=== PATIENT | male | born 1980 | race Caucasian/White ===

== ENCOUNTER 2022-08-14 20:06 | Emergency (ER) | payer MEDICAID, SELFPAY ==
[2022-08-14 20:07] VITALS: BP 136/85; PULSE 64; RESP 15; TEMP 36.2; O2SAT 95; BMI 25.7
[2022-08-14 22:22] VITALS: PULSE 69; RESP 16; O2SAT 97
--- NOTE | 2022-08-14 22:22 | EX.ED.DYSGE1 ---
HPI History of Present Illness Chief Complaint: Wound Narrative Narrative: Patient is a 41-year-old male with no significant past medical history. He reports over the past 5 days he has developed redness swelling and pain along the right cheek near the nostril. He denies any trauma or history of immunosuppression. He states that he has had this happen a few times in the past and the areas will spontaneously rupture and then improved. He states that has not occurred this time and he is afraid he may need antibiotics and with this comes in for evaluation. PFSH PFSH Home Medications cyclobenzaprine 10 mg tablet 10 mg PO TID spasm #20 tabs 04/26/17 [Rx Last Taken Unknown] naproxen 500 mg tablet 500 mg PO BID #20 tabs 04/26/17 [Rx Last Taken Unknown] clindamycin HCl 300 mg capsule 300 mg PO 4X/DAY 7 days #28 caps 08/14/22 [Rx Last Taken Unknown] hydrocodone-acetaminophen 5-325mg 5mg-325mg 1 tab PO Q6H PRN PRN Pain 3 days #12 TABLETS 08/14/22 [Rx Last Taken Unknown] Allergy/AdvReac Type Severity Reaction Status Date / Time No Known Allergies Allergy Verified 08/14/22 20:09 Social History Smoking Status: Current every day smoker tobacco type: cigarettes ROS ROS ED Constitutional Constitutional ED: Denies chills or fever(s) ENT ENT ED: Denies sore throat Cardiovascular Cardiovascular: Denies chest pain Respiratory/Chest Respiratory/Chest: Denies cough or dyspnea Gastrointestinal Gastrointestinal: Denies abdominal pain, diarrhea, nausea or vomiting Genitourinary Genitourinary ED: Denies dysuria Musculoskeletal Musculoskeletal: Denies myalgias Integumentary Reports abscess Neurologic Neurologic: Denies headache(s) Hematologic/Lymphatic Hematologic/Lymphatic: Denies easy bleeding or easy bruising EXAM Physical Exam Const Vital Signs: 08/14/22 20:07 08/14/22 22:22 Temperature 97.1 F L Temperature Source Temporal Pulse Rate 64 69 Respiratory Rate 15 16 Blood Pressure 136/85 H Blood Pressure Mean 102 Pulse Ox 95 97 Oxygen Delivery Method Room Air Positive well nourished and well developed General Appearance ED: well developed HEENT Reports moist mucous membranes HEENT Narrative: No intranasal abscess noted Eyes PERRL and EOMs intact bilaterally Neck supple Resp normal respiratory effort and clear to auscultation bilaterally Cardio regular rate and regular rhythm Extremity normal to inspection Neuro oriented x3 and CN's II-XII intact bilaterally Sensorium / Orientation: alert Psych mental status grossly normal Skin Skin Narrative: Patient has soft tissue swelling along the medial aspect/nasal aspect of the zygomatic arch there is a 1 x 1 cm of erythema with slight pustule head and a 1 x 2 cm area of induration consistent with abscess. No active drainage or lymphangitic streaking noted. No crepitance palpated. MDM MDM MDM Narrative Medical decision making narrative: Patient presented to the ER afebrile with stable vitals. His exam is consistent with early abscess. We discussed incision and drainage but patient does not that performed at this time. By exam he does not have dacryocystitis or cellulitis or gas gangrene. Therefore this time as his physical exam history indicates early abscess formation and he does not want incision and drainage and he is not immunosuppressed we will simply start him on antibiotics and recommend warm compresses to get the area draining. Patient states he is agreeable with this plan and therefore he will be prescribed clindamycin and discharged home History & Record Review Discussion w/independent historian: Patient Discharge Plan Triage Chief Complaint: Wound ED Provider: Gray Gallego Dx/Rx/DC Orders Clinical Impression: Abscess of face Instructions: ED Abscess Antibiotic Treatment Only Prescriptions: New clindamycin HCl 300 mg capsule 300 mg PO 4X/DAY 7 Days Qty: 28 0RF hydrocodone-acetaminophen 5-325 mg tablet 1 tab PO Q6H PRN PRN (Reason: Pain) 3 Days Qty: 12 0RF No Action cyclobenzaprine 10 MG tablet 10 mg PO TID Qty: 20 0RF naproxen 500 MG tablet 500 mg PO BID Qty: 20 0RF Stand Alone Forms: ED Work / School Excuse Primary Care Provider: Care Physician,No Primary Referrals: Suzan Farfan MD [Med Staff - Enrollment Counselor] - Care Physician,No Primary [Primary Care Provider] - Activity Restrictions/Additional Instructions: Take the antibiotics as directed and use warm compresses to help bring the abscess to a head and help with draining. If there is worsening of symptoms despite taking the antibiotic you may need to have the area incised and drained and therefore return to the hospital for repeat evaluation Disposition Disposition: Home, Self Care Discharge Date/Time: 08/14/22 22:36
[2022-08-14] MEDS: Clindamycin HCl 150 MG Capsule 300 MG PO (22:32)
== END 2022-08-14 22:36 | disposition home or self-care (01) ==
PROVIDERS: Emergency Provider Emergency Medicine; Visit Provider Emergency Medicine
DX: L02.01 Cutaneous abscess of face (principal); F17.210 Nicotine dependence, cigarettes, uncomplicated
CPT/HCPCS: 99283

== ENCOUNTER 2023-03-24 15:44 | Emergency (ER) | payer OTHER, SELFPAY ==
[2023-03-24 15:45] VITALS: BP 110/57; BP 139/104; PULSE 61; PULSE 64; RESP 12; RESP 19; TEMP 36; O2SAT 98; BMI 26.4
[2023-03-24] MEDS: Diphth,Pertuss(Acell),Tet Vac 0.5 ML Vial IM (16:20)
[2023-03-24] MEDS: Gelfoam 12-7 MM Sponge (1) 1 EACH TOPICAL (16:21)
--- NOTE | 2023-03-24 16:27 | EX.ED.DYSGE1 ---
HPI <ESTIVEN Covarrubias - Last Filed: 03/24/23 16:43> History of Present Illness Chief Complaint: Laceration Narrative Narrative: Patient is a 42-year-old male with no significant medical history presents to the emergency department after sustaining a laceration while at work. 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 Patient states he was unable to get the bleeding stopped, he is here for evaluation. Patient injury is a workers comp claim. Patient is unsure of his last tetanus vaccination. PFSH <ESTIVEN Covarrubias - Last Filed: 03/24/23 16:43> [facility] Medical History no medical history Home Medications cyclobenzaprine 10 mg tablet 10 mg PO TID spasm #20 tabs 04/26/17 [Rx Last Taken Unknown] naproxen 500 mg tablet 500 mg PO BID #20 tabs 04/26/17 [Rx Last Taken Unknown] clindamycin HCl 300 mg capsule 300 mg PO 4X/DAY 7 days #28 caps 08/14/22 [Rx Last Taken Unknown] hydrocodone-acetaminophen 5-325mg 5mg-325mg 1 tab PO Q6H PRN PRN Pain 3 days #12 TABLETS 08/14/22 [Rx Last Taken Unknown] Allergy/AdvReac Type Severity Reaction Status Date / Time No Known Allergies Allergy Verified 03/24/23 15:47 Social History Smoking Status: Current every day smoker tobacco type: cigarettes ROS <ESTIVEN Covarrubias - Last Filed: 03/24/23 16:43> ROS ED ROS Narrative Constitutional: Negative for fever, chills, weight loss, weakness Eyes: Negative for vision loss, vision change, double vision ENT: Negative for any sore throat, ear pain, congestion Cardiovascular: Negative for any chest pain, tightness, palpitations Respiratory: Negative for any cough, sputum production, hemoptysis, dyspnea, dyspnea on exertion, orthopnea Gastrointestinal: Negative for any abdominal pain, nausea, vomiting, diarrhea, constipation, blood in stool, blood in vomit : Negative for any urinary frequency, dysuria, retention, blood in urine Muscle skeletal: Negative for any muscle joint pain, stiffness, myalgias, arthralgias, neck pain, back pain Neurological: Negative for any headache, syncope, numbness or tingling, dizziness Skin: Negative for any rashes, lumps, itching, abrasions. Positive for left thumb laceration Psychiatric: Negative for any depression, anxiety, stress, suicidal ideation, homicidal ideation Hematologic: Negative for any easy bruising, excessive bruising, easy bleeding Allergies: Negative for any eczema, hives, rash EXAM <ESTIVEN Covarrubias - Last Filed: 03/24/23 16:43> Physical Exam Narrative Exam Narrative: Vital signs reviewed. Extremities: No peripheral edema, no signs of gross trauma or deformity. Active full range of motion of all extremities. Patient does have an avulsion light laceration of the distal tip of the left thumb. There is bleeding however there is no evidence of any deep tissue injury, there is no bone exposure, no foreign body. Patient has full range of motion. +2 radial pulse. X-ray neurological focal deficit Neuro: Cranial nerves II through XII intact, no focal neurological deficits. Skin: Clean dry and intact with no rash, purpura, petechiae, vesicles or pustules. Backs/flank: No CVA tenderness, no midline spinal tenderness, no deformity. Psych: Normal mood and affect. No SI, HI or acute psychosis. Const Vital Signs: 03/24/23 15:45 03/24/23 15:45 Temperature 96.8 F L Temperature Source Temporal Pulse Rate 61 64 Respiratory Rate 19 H 12 Blood Pressure 139/104 H 110/57 L Blood Pressure Mean 115 74 Pulse Ox 98 98 Oxygen Delivery Method Room Air Room Air Positive well nourished and well developed General Appearance ED: well developed <Dr. Willem Dietrich MD - Last Filed: 03/24/23 21:12> Physical Exam Const Vital Signs: 03/24/23 15:45 03/24/23 15:45 Temperature 96.8 F L Temperature Source Temporal Pulse Rate 61 64 Respiratory Rate 19 H 12 Blood Pressure 139/104 H 110/57 L Blood Pressure Mean 115 74 Pulse Ox 98 98 Oxygen Delivery Method Room Air Room Air MDM <ESTIVEN Covarrubias - Last Filed: 03/24/23 16:43> MDM Treatment and Re-Evaluation :: Patient appears generally well, patient appears nontoxic, vital signs are stable. Patient presents to the emergency department after a avulsion like injury to the distal tip of the left thumb. I did anesthetize the area in order to clean it more thoroughly. I was able to place Gelfoam on the area. Patient was given wound care instructions. All proper paperwork was filled out. At this time, patient will receive his Adacel vaccination today, all proper paperwork were filled out. He was given return precaution. Patient stable for discharge <Dr. Willem Dietrich MD - Last Filed: 03/24/23 21:12> [facility] Treatment and Re-Evaluation Comments:: I have personally performed a face to face assessment of the patient and have reviewed the MARCIE Note. I performed a substantive portion of the visit including all aspects of the following. 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 Exam is epidermal avulsion into the dermis with oozing, superficial relatively, with no nail or nailbed injury, no x-ray indicated given this is not near the bone. Full extension and flexion intact. Medical Decison Making supportive care as above. Other additions or changes: [None] Discharge Plan Triage Chief Complaint: Laceration ED Midlevel Provider: Patrick Bundy ED Provider: Willem Dietrich Dx/Rx/DC Orders Clinical Impression: Avulsion of skin of left thumb Instructions: ED Laceration: All Closures, ED Wound Check (No Infection) Prescriptions: No Action cyclobenzaprine 10 MG tablet 10 mg PO TID Qty: 20 0RF naproxen 500 MG tablet 500 mg PO BID Qty: 20 0RF clindamycin HCl 300 mg capsule 300 mg PO 4X/DAY 7 Days Qty: 28 0RF hydrocodone-acetaminophen 5-325 mg tablet 1 tab PO Q6H PRN PRN (Reason: Pain) 3 Days Qty: 12 0RF Primary Care Provider: Care Physician,No Primary Referrals: Care Physician,No Primary [Primary Care Provider] - [facility] [Non-Staff] - Activity Restrictions/Additional Instructions: You must keep the area clean and dry. Use the dressing material we gave you. Disposition Disposition: Home, Self Care Discharge Date/Time: 03/24/23 16:49
--- NOTE | 2023-03-24 16:47 | ED.RN ---
PT INSTRUCTED TO GO STRAIGHT TO NOW [facility]IC THEY CLOSE AT 1800. PT VOICES UNDERSTANDING.
== END 2023-03-24 16:49 | disposition home or self-care (01) ==
PROVIDERS: Emergency Provider Emergency Medicine; Visit Provider Emergency Medicine
DX: S61.012A Laceration without foreign body of left thumb without damage to nail, initial encounter (principal); F17.210 Nicotine dependence, cigarettes, uncomplicated; Z23 Encounter for immunization; W26.0XXA Contact with knife, initial encounter
CPT/HCPCS: 90471; 90715; 99282

== ENCOUNTER 2023-04-21 15:38 | Emergency (ER) | payer MEDICAID, SELFPAY ==
[2023-04-21 15:41] VITALS: BP 139/108; PULSE 122; RESP 20; TEMP 35.9; O2SAT 100; BMI 25.0
--- NOTE | 2023-04-21 15:50 | RAD_ITS ---
STUDY: X-RAY CHEST REASON FOR EXAM: Male, 42 years old. SOB TECHNIQUE: PA and lateral COMPARISON: April 26 2017 FINDINGS: The lungs are clear and expanded. There is no demonstrated pleural abnormality. Normal size heart. Normal mediastinum and hilum. Normal visualized pulmonary arteries. Normal visualized aortic arch and descending thoracic aorta. Normal visualized thoracic spine. Normal visualized ribs, clavicles, and shoulders. There is no demonstrated abnormality of the visualized soft tissue structures of the upper abdomen. RAD/Chest PA and Lateral IMPRESSION: No acute cardiopulmonary pathology Electronically Signed: Reginald Dasilva MD at 16:12 EST ,
--- NOTE | 2023-04-21 15:55 | EKG12_ITS ---
Test Reason : SOB/CP Blood Pressure : / mmHG Vent. Rate : 106 BPM Atrial Rate : 106 BPM P-R Int : 128 ms QRS Dur : 082 ms QT Int : 322 ms P-R-T Axes : 084 077 067 degrees QTc Int : 427 ms Sinus tachycardia Biatrial enlargement Abnormal ECG Confirmed by BAYRON FLOREZ, ML ([id number]), school photograph editor SHANNON WEAVER ([id number]) on 04/22/2023 10:48:22 AM Referred By: Confirmed By:ML VERMA MD
--- NOTE | 2023-04-21 16:16 | EDS_ITS ---
HPI <ESTIVEN Covarrubias - Last Filed: 04/21/23 16:20> History of Present Illness Chief Complaint: Shortness of Breath Narrative Narrative: Patient is a 42-year-old male with history of tobacco use, history of bronchitis presents to the emergency department with complaints of shortness of breath. 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 He states that he then got anxious, and is here for evaluation. [place] any cough, fever, chills, nausea or vomiting. PFSH <ESTIVEN Covarrubias - Last Filed: 04/21/23 16:20> [facility] Medical History no medical history Home Medications cyclobenzaprine 10 mg tablet 10 mg PO TID spasm #20 tabs 04/26/17 [Rx Last Taken Unknown] naproxen 500 mg tablet 500 mg PO BID #20 tabs 04/26/17 [Rx Last Taken Unknown] clindamycin HCl 300 mg capsule 300 mg PO 4X/DAY 7 days #28 caps 08/14/22 [Rx Last Taken Unknown] hydrocodone-acetaminophen 5-325mg 5mg-325mg 1 tab PO Q6H PRN PRN Pain 3 days #12 TABLETS 08/14/22 [Rx Last Taken Unknown] Allergy/AdvReac Type Severity Reaction Status Date / Time No Known Allergies Allergy Verified 04/21/23 15:40 Surgical History no surgical history Social History Smoking Status: Current every day smoker tobacco type: cigarettes ROS <ESTIVEN Covarrubias - Last Filed: 04/21/23 16:20> ROS ED ROS Narrative Constitutional: Negative for fever, chills, weight loss, weakness Eyes: Negative for vision loss, vision change, double vision ENT: Negative for any sore throat, ear pain, congestion Cardiovascular: Negative for any chest pain, tightness, palpitations Respiratory: Negative for any cough, sputum production, hemoptysis, dyspnea on exertion, orthopnea. Positive for dyspnea Gastrointestinal: Negative for any abdominal pain, nausea, vomiting, diarrhea, constipation, blood in stool, blood in vomit : Negative for any urinary frequency, dysuria, retention, blood in urine Muscle skeletal: Negative for any myalgias, arthralgias, neck pain, back pain Neurological: Negative for any headache, syncope, numbness or tingling, dizziness Skin: Negative for any rashes, lumps, itching, abrasions, lacerations Psychiatric: Negative for any depression, anxiety, stress, suicidal ideation, homicidal ideation Hematologic: Negative for any easy bruising, excessive bruising, easy bleeding Allergies: Negative for any eczema, hives, rash EXAM <ESTIVEN Covarrubias - Last Filed: 04/21/23 16:20> Physical Exam Narrative Exam Narrative: Vital signs reviewed. HEET: Head normocephalic atraumatic, TMs clear bilaterally. Posterior pharynx is clear, moist mucous membranes. Nares clear bilaterally. Neck: Supple with no lymphadenopathy or tenderness. No signs of meningismus. Cardiac: Regular rate and rhythm no murmurs gallops or rubs, equal peripheral pulses bilaterally. Respiratory: Lungs clear to auscultation bilaterally. No chest tenderness. Abdomen: Soft, nontender, nondistended. No abdominal bruit or pulsatile masses. No hepatosplenomegaly Extremities: No peripheral edema, no signs of gross trauma or deformity. Active full range of motion of all extremities. Neuro: Cranial nerves II through XII intact, no focal neurological deficits. Skin: Clean dry and intact with no rash, purpura, petechiae, vesicles or pustules. Backs/flank: No CVA tenderness, no midline spinal tenderness, no deformity. Psych: Normal mood and affect. No SI, HI or acute psychosis. Const Vital Signs: 04/21/23 15:41 Temperature 96.7 F L Temperature Source Temporal Pulse Rate 122 H Respiratory Rate 20 H Blood Pressure 139/108 H Blood Pressure Mean 118 Pulse Ox 100 Oxygen Delivery Method Room Air <Dr. Mo Gould MD - Last Filed: 04/21/23 16:26> Physical Exam Const Vital Signs: 04/21/23 15:41 Temperature 96.7 F L Temperature Source Temporal Pulse Rate 122 H Respiratory Rate 20 H Blood Pressure 139/108 H Blood Pressure Mean 118 Pulse Ox 100 Oxygen Delivery Method Room Air MDM <ESTIVEN Covarrubias - Last Filed: 04/21/23 16:20> MDM Radiography Diagnostic Testing: Clinical Impression(s) from Imaging Studies Chest X-Ray 04/21/23 15:50 IMPRESSION: No acute cardiopulmonary pathology Electronically Signed: Reginald Dasilva MD at 16:12 EST Reading Location ID and State: [facility] / [place] Tel , Service support , Treatment and Re-Evaluation :: Patient appears generally well, patient appears nontoxic, vital signs are stable. Presenting to the emergency department complaints of shortness of breath after getting out of a walkout freezer. Differential diagnosis includes pneumonia, viral-like symptoms, pulmonary embolism, pneumothorax. Patient's vital signs are stable, patient is no obvious distress. Patient has no advantageous lung sounds, no infectious-like symptoms. Patient received a two- view chest x-ray, this was interpreted by ER physician, this was negative for any acute process. Patient's EKG was unremarkable. At this time, patient struck to quit smoking, he will be discharged home, patient be diagnosed dyspnea, uncertain etiology. On reevaluation, the patient is in no obvious distress, patient is speaking complete sentences, patient was given return precautions. <Dr. Mo Gould MD - Last Filed: 04/21/23 16:26> [facility] Narrative Medical decision making narrative: I have personally performed a face to face assessment of the patient and have reviewed the MARCIE Note. I performed a substantive portion of the visit including all aspects of the following. My cannon findings include: History is 42-year-old male no significant past medical history. Patient is a smoker. States he felt fine the last few days. He felt fine this morning. He actually walked to work which takes him 20 to 30 minutes. He said he felt fine. 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 No chest pain. No fever. No cough. No leg pain or swelling. No history of DVT or PE or risk factor. No history of cardiac disease. Denies any recent URI symptoms. Exam is [well-appearing 42-year-old male. Vital signs stable. Pulse ox 100% on room air no signs hypoxia. HEENT exam normal. Neck nontender no lymphadenopathy. Lungs clear to auscultation bilaterally. No rales, rhonchi or wheezing. Equal symmetrical Heart regular rhythm rate about 105 no murmur. Chest wall nontender. Abdomen soft nontender. Normal bowel sounds. Nondistended. No peritoneal signs. Moving all 4 extremities. Nontender. No edema. No cords. Equal symmetrical radial pulses. Back exam normal. Skin no rashes. Neurologically is awake and alert with no focal motor deficits.] Medical Decision Making [42-year-old with a normal exam complaint shortness of breath with a pulse ox 100%. He had no recent illness. No reason to be anemic. His chest x-ray was unremarkable with a normal cardiac silhouette and mediastinum. Normal lung montalvo. It was 2 views interpreted by myself. EKG showed a sinus tachycardia rate of around 106 but no signs of DE, ischemia or dysrhythmia. Patient will be discharged home with outpatient follow-up.] Other additions or changes: [None] History & Record Review Discussion w/independent historian: Patient Radiography Chest X-Ray - ED: 2 View, Read by ED Physician, Read by Radiologist, Normal, Heart, Lungs, Mediastinum, Bony Structures and No Acute Disease Diagnostic Testing: Clinical Impression(s) from Imaging Studies Chest X-Ray 04/21/23 15:50 IMPRESSION: No acute cardiopulmonary pathology Electronically Signed: Reginald Dasilva MD at 16:12 EST Reading Location ID and State: [facility] / [place] Tel , Service support , Discharge Plan Triage Chief Complaint: Shortness of Breath ED Midlevel Provider: Patrick Bundy ED Provider: Mo Gould Dx/Rx/DC Orders Clinical Impression: Dyspnea Instructions: ED Dyspnea Prescriptions: No Action cyclobenzaprine 10 MG tablet 10 mg PO TID Qty: 20 0RF naproxen 500 MG tablet 500 mg PO BID Qty: 20 0RF clindamycin HCl 300 mg capsule 300 mg PO 4X/DAY 7 Days Qty: 28 0RF hydrocodone-acetaminophen 5-325 mg tablet 1 tab PO Q6H PRN PRN (Reason: Pain) 3 Days Qty: 12 0RF Primary Care Provider: Care Physician,No Primary Referrals: Care Physician,No Primary [Primary Care Provider] - Activity Restrictions/Additional Instructions: Please try to quit smoking, return for any worsening symptoms Disposition Disposition: Home, Self Care
[2023-04-21 16:32] VITALS: O2SAT 98
== END 2023-04-21 16:32 | disposition home or self-care (01) ==
LOC: ED 16:29
PROVIDERS: Emergency Provider Emergency Medicine; Visit Provider Emergency Medicine
DX: R06.00 Dyspnea, unspecified (principal); F17.210 Nicotine dependence, cigarettes, uncomplicated
CPT/HCPCS: 71046; 93005; 99282

== ENCOUNTER 2023-05-01 15:57 | Emergency (ER) | payer MEDICAID, SELFPAY ==
[2023-05-01 15:58] VITALS: BP 104/62; PULSE 59; RESP 17; TEMP 36.7; O2SAT 98; BMI 25.7
[2023-05-01 16:21] LABS: Absolute Lymphocyte Count 2.85 X10^3/uL (0.83-4.51); Absolute Neutrophil Count 6.2 X10^3/uL (2.0-7.7); Basophil# 0.08 X10^3/uL; Basophil% 0.8 % (0-1); Eosinophil# 0.08 X10^3/uL; Eosinophils% 0.8 % (0-5); Hematocrit 44.1 % (40-54); Hemoglobin 15.2 g/dL (13.0-16.5); Lymphocyte # 2.85 X10^3/ul (0.83-4.51); Lymphocyte % 28.9 % (19-41); Mean Corp Hgb Conc 34.5 g/dL (32-36); Mean Corpuscular Hgb 30.5 pg (27.0-32.0); Mean Corpuscular Volume 88.4 fL (80-94); Mean Platelet Vol. 9.6 fl (6.2-12.0); Monocyte# 0.64 X10^3/uL; Monocyte% 6.5 % (0-10); NRBC Flagged by Analyzer 0 % (0-5); Neutrophil # 6.18 X10^3/uL (2.7-7.7); Neutrophil % 62.8 % (47-70); Platelet Count 326 K/mm3 (150-450); RBC Distribution Width CV 12.2 % (11.6-14.6); RBC Distribution Width SD 39.5 fl (35.1-43.9); Red Blood Count 4.99 M/mm3 (4.6-6.2); White Blood Count 9.9 K/mm3 (4.4-11.0)
[2023-05-01 16:40] LABS: ALB/GLOB Ratio 1.1 RATIO (0.9-2.4); AST(SGOT) 17 U/L (15-37); Alanine Aminotransfer ALT/SGPT 19 U/L (16-61); Albumin, Serum 3.8 g/dL (3.2-5.0); Alkaline Phosphatase 77 U/L (45-117); Anion Gap 3 (5-15); BUN 7 mg/dL (7-18); BUN/Creat Ratio 8.3 RATIO (10-20); Calcium,Total 8.9 mg/dL (8.5-10.1); Chloride 109 mmol/L (98-107); Creatinine, Serum 0.85 mg/dL (0.70-1.30); EST Glomerular Filtration Rate 106 mL/min (>60); Est Glom Filt Rate - Afr Amer 129 mL/min (>60); Estimated Creatinine Clearance 108.01 ml/min; Globulin 3.6 g/dL (2.2-4.2); Glucose 95 mg/dL (74-106); Potassium 4.3 mmol/L (3.5-5.1); Protein, Total 7.4 g/dL (6.4-8.2); Sodium Level 139 mmol/L (136-145)
[2023-05-01 18:14] LABS: Bacteria 0 SEEN /hpf (None Seen); Mucous, Urine 0 SEEN /hpf (<or=2+); Red Blood Cells-Urine 0 SEEN /hpf (0-5); Squamous Epithelial Cells - UA 0 SEEN /hpf (0-5); White Blood Cells 0 SEEN /hpf (0-5)
[2023-05-01 18:26] LABS: Color, Urine Yellow (Yellow); Glucose, Dipstick Normal (Normal); Ketone-Dipstick Negative (Negative); Leukocyte Esterase-Dipstick Negative /ul (Negative); Nitrite-Dipstick Negative (Negative); Occult Blood-Urine Negative /ul (Negative); Protein-Dipstick Negative (Negative); Specific Gravity, Urine 1.015 (1.002-1.030); Urine Bilirubin Dipstick Negative (Negative); Urine Clarity Clear (Clear); Urine Urobilinogen Normal (Normal)
--- NOTE | 2023-05-01 19:13 | ED.VIS.GI ---
HPI HPI - GI History of Present Illness Chief Complaint: Abd Pain Narrative Narrative: 42-year-old male presenting with left upper quadrant pain/epigastric pain. He states he thought he had a viral bug yesterday and today. States he was walking around at work today and started getting some cramping on the left side. He admits to some diarrhea which is resolved. No nausea or vomiting. No fever or chills. Patient states his symptoms have resolved now and he feels better. He has not taken any medications. He denies significant medical history. PFSH PFSH Medical History no medical history Home Medications NK 05/01/23 [History Last Taken Unknown] Allergy/AdvReac Type Severity Reaction Status Date / Time No Known Allergies Allergy Verified 05/01/23 15:58 Surgical History no surgical history Social History Smoking Status: Current every day smoker tobacco type: cigarettes ROS ROS ED Constitutional Constitutional ED: Denies chills, fever(s) or sweats Eyes Eyes: Denies blurry vision or change in vision ENT ENT ED: Denies ear pain or sore throat Cardiovascular Cardiovascular: Denies chest pain, palpitations or racing heartbeat Respiratory/Chest Respiratory/Chest: Denies cough, dyspnea or sputum Gastrointestinal Gastrointestinal: Reports abdominal pain and diarrhea; Denies constipation, nausea or vomiting Genitourinary Genitourinary ED: Denies dysuria, hematuria or urinary frequency Musculoskeletal Musculoskeletal: Denies arthralgias, myalgias or neck pain Integumentary Denies abscess, Abrasions or rash Neurologic Neurologic: Denies headache(s), paresthesias or weakness Psychiatric Psychiatric: Denies anxiety, depression, suicidal ideation or suicidal thoughts Endocrine Endocrinology: Denies polydipsia or polyuria EXAM Physical Exam Const Vital Signs: 05/01/23 15:58 Temperature 98.1 F Temperature Source Temporal Pulse Rate 59 L Respiratory Rate 17 Blood Pressure 104/62 Blood Pressure Mean 76 Pulse Ox 98 Oxygen Delivery Method Room Air Positive well nourished General Appearance ED: NAD; Negative for pallor HEENT Reports moist mucous membranes normocephalic Eyes PERRL and EOMs intact bilaterally Resp normal respiratory effort Cardio regular rate and regular rhythm GI non-tender, non-distended and no masses Neuro CN's II-XII intact bilaterally Sensorium / Orientation: alert Motor Exam: strength 5/5 throughout Psych mental status grossly normal and thought process normal Skin no wounds General Skin Exam: Negative for jaundice or pallor MDM MDM MDM Narrative Medical decision making narrative: Patient presented with abdominal pain which is left-sided. He has no epigastric tenderness on examination. No nausea or vomiting. He had diarrhea which is resolved. Differential includes gastritis, diverticulitis, colitis, dehydration, electrolyte abnormalities, viral etiology. Patient declines being tested for virus. CBC obtained to assess white blood cell count, hemoglobin, platelets. CMP to assess liver function, renal function, electrolytes, glucose. Urinalysis to assess for UTI. All the workup was negative. On reevaluation patient is comfortable. He states he just needs a work note for home. He declines any analgesia or antiemetics. Patient discharged home in stable condition. Impression: 1. Abdominal pain 2. Diarrhea Lab Data Labs: Laboratory Results - last 24 hr 05/01/23 05/01/23 16:11 18:10 WBC 9.9 RBC 4.99 Hgb 15.2 Hct 44.1 MCV 88.4 MCH 30.5 MCHC 34.5 RDW Std Deviation 39.5 RDW Coeff of [place] 12.2 Plt Count 326 MPV 9.6 Immature Gran % (Auto) 0.200 Neut % (Auto) 62.8 Lymph % (Auto) 28.9 [place] % (Auto) 6.5 Eos % (Auto) 0.8 Baso % (Auto) 0.8 Absolute Neuts (auto) 6.2 Absolute Lymphs (auto) 2.85 Nucleated RBC % 0 Sodium 139 Potassium 4.3 Chloride 109 H Carbon Dioxide 27.0 Anion Gap 3 L BUN 7 Creatinine 0.85 Estim Creat Clear Calc 108.01 Est GFR (MDRD) Af Amer 129 Est GFR (MDRD) Non-Af 106 BUN/Creatinine Ratio 8.3 L Glucose 95 Calcium 8.9 Total Bilirubin 0.40 AST 17 ALT 19 Alkaline Phosphatase 77 Total Protein 7.4 Albumin 3.8 Globulin 3.6 Albumin/Globulin Ratio 1.1 Urine Color Yellow Urine Clarity Clear Urine pH 6.0 Ur Specific [place] 1.015 Urine Protein Negative Urine Glucose (UA) Normal Urine Ketones Negative Urine Occult Blood Negative Urine Nitrite Negative Urine Bilirubin Negative Urine Urobilinogen Normal Ur Leukocyte Esterase Negative Urine RBC 0 SEEN Urine WBC 0 SEEN Ur Squamous Epith Cells 0 SEEN Urine Bacteria 0 SEEN Urine Mucus 0 SEEN Discharge Plan Triage Chief Complaint: Abd Pain ED Provider: Mejia Hamm Dx/Rx/DC Orders Instructions: ED Abdominal Pain Unkn Cause Male... Prescriptions: No Action NK Stand Alone Forms: ED Work / School Excuse Primary Care Provider: Care Physician,No Primary Referrals: [facility] [Provider Group] - 3-5 Days Care Physician,No Primary [Primary Care Provider] - Disposition Disposition: Home, Self Care
[2023-05-01 19:43] VITALS: PULSE 71; RESP 16; O2SAT 98
== END 2023-05-01 19:46 | disposition home or self-care (01) ==
PROVIDERS: Emergency Provider Student in an Organized Health Care Education/Training Program; Visit Provider Student in an Organized Health Care Education/Training Program
DX: R10.12 Left upper quadrant pain (principal); R19.7 Diarrhea, unspecified; F17.210 Nicotine dependence, cigarettes, uncomplicated
CPT/HCPCS: 80053; 81001; 85025; 99283; A4216